=== PATIENT | female | born 1985 | race African-American/Black ===

== ENCOUNTER 2016-05-21 14:38 | Emergency (ER) | payer OTHER, MEDICAID ==
[~2016-05-21] VITALS: Ht 175.3 cm; Wt 108.0 kg
[~2016-05-21 14:38] MED LIST: CIPR500T4 PO; HYDR-3533 PO; PHEN1TAB49 PO; Z.0.BCPILL PO
[2016-05-21 14:39] VITALS: BP 138/82; PULSE 84; RESP 15; TEMP 97.8; O2SAT 95
[2016-05-21 16:30] VITALS: BP_SYST 130; BP_SYST 139; BP_DIAS 76; BP_DIAS 82; PULSE 71; RESP 15; O2SAT 98
[2016-05-21] MEDS ORDERED: SODIUM CHLORIDE 0.9% FLUSH 5 ML FLUSH IVF PRN (16:30)
[2016-05-21] MEDS ORDERED: methylPREDNISolone SOD SUCC 125 MG/2 ML VIAL IV PUSH ONE (16:30)
[2016-05-21] MEDS ORDERED: diphenhydrAMINE HCL 50 MG/ML VIAL IV PUSH ONE (16:30)
--- NOTE | 2016-05-21 16:30 | PD ---
HPI Chief Complaint: Chest Pain Time Seen by Provider: 16:20 Travel History International Travel<30 days: No Contact w/Intl Traveler<30days: No Traveled to known affect area: No History of Present Illness HPI 31-year-old female with history of borderline diabetes, presents to the ER today because she states that she started having chest discomfort this morning, itchiness all over her skin, lip swelling, dyspnea. She is able to swallow her own saliva, has not noticed an actual rash, denies any fevers or any other symptoms. She states that she has been eating more nuts in the last few weeks because her doctor has told her to try to eat healthier diet for her diabetes. 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 She denies any previous history of anaphylaxis. She denies any new medications. Modifying Factors: None Associated Signs & Symptoms: Chest discomfort, lip swelling, itchiness Risk Factors: Possible change in diet, eating nuts more PFSH Past Medical History Anemia: Yes Diminished Hearing: No Immunizations Current: Yes ?: Unknown LMP: 03/2016 : 5 Para: 3 Miscarriage: 1 : 1 Past Surgical History Section: Yes (x3) Tonsillectomy: Yes Social History Alcohol Use: Yes (WINE OCCASIONALLY) Tobacco Use: No Substance Use: No Allergies-Medications (Allergen,Severity, Reaction): Coded Allergies: Aspirin (Unverified Allergy, Severe, Swelling, 05/21/16) Ibuprofen (Unverified Allergy, Unknown, itchy, 05/21/16) patient states she is unsure if this is a true allergy or not Reported Meds & Prescriptions Reported Meds & Active Scripts Active Lortab 5 mg/325 mg (Hydrocodone/Acetaminophen 5 mg/325 mg) 1 Tab 1 Tab PO Q6H PRN Pyridium (Phenazopyridine HCl) 100 Mg Tab 100 Mg PO Q8H PRN Cipro (Ciprofloxacin HCl) 500 Mg Tab 500 Mg PO BID Reported Control Pills (Miscellaneous Medication) Tab 1 Tab PO DAILY Review of Systems Except as stated in HPI: all other systems reviewed are Neg Physical Exam Narrative GENERAL: Well-nourished, well-developed young -[place] female patient in no acute distress. SKIN: Warm and dry. I do not see obvious hives or rashes. HEAD: Normocephalic. EYES: No scleral icterus. No injection or drainage. ENT: Mucosa pink and moist. No erythema or exudates. No uvular edema. No uvular , palatal, or tonsillar deviation. Airway patent. Mild lower lip edema. NECK: Supple, trachea midline. CARDIOVASCULAR: Regular rate and rhythm without murmurs, gallops, or rubs. RESPIRATORY: Breath sounds equal bilaterally. No accessory muscle use. GASTROINTESTINAL: Abdomen soft, non-tender, nondistended. MUSCULOSKELETAL: No cyanosis, or edema. BACK: Nontender without obvious deformity. No CVA tenderness. Data Data Last Documented VS Vital Signs Date Time Temp Pulse Resp B/P Pulse Ox O2 Delivery O2 Flow Rate FiO2 05/21/16 16:30 71 15 130/76 98 139/82 05/21/16 16:27 Room Air 05/21/16 14:39 97.8 Orders Electrocardiogram (05/21/16 ) Basic Metabolic Panel (Bmp) (05/21/16 16:20) Ckmb (Isoenzyme) Profile (05/21/16 16:20) Complete Blood Count With Diff (05/21/16 16:20) Magnesium (Mg) (05/21/16 16:20) Prothrombin Time / Inr (Pt) (05/21/16 16:20) Act Partial Throm Time (Ptt) (05/21/16 16:20) Troponin I (05/21/16 16:20) Chest, Single Ap (05/21/16 16:20) Ecg Monitoring (05/21/16 16:20) Bilateral Bp Monitoring (05/21/16 16:20) Iv Access Insert/Monitor (05/21/16 16:20) Oximetry (05/21/16 16:20) Oxygen Administration (05/21/16 16:20) Sodium Chloride 0.9% Flush (Ns Flush) (05/21/16 16:30) Ed Urine Pregnancytest Poc (05/21/16 16:20) Methylprednisolone So Succ Inj (Solumedr (05/21/16 16:30) Diphenhydramine Inj (Benadryl Inj) (05/21/16 16:30) Labs Laboratory Tests Test 05/21/16 16:25 White Blood Count 10.7 TH/MM3 Red Blood Count 4.73 MIL/MM3 Hemoglobin 12.9 GM/DL Hematocrit 37.4 % Mean Corpuscular Volume 79.1 FL Mean Corpuscular Hemoglobin 27.3 PG Mean Corpuscular Hemoglobin 34.6 % Concent Red Cell Distribution Width 16.5 % Platelet Count 264 TH/MM3 Mean Platelet Volume 9.1 FL Neutrophils (%) (Auto) 63.0 % Lymphocytes (%) (Auto) 28.0 % Monocytes (%) (Auto) 6.0 % Eosinophils (%) (Auto) 2.9 % Basophils (%) (Auto) 0.1 % Neutrophils # (Auto) 6.8 TH/MM3 Lymphocytes # (Auto) 3.0 TH/MM3 Monocytes # (Auto) 0.6 TH/MM3 Eosinophils # (Auto) 0.3 TH/MM3 Basophils # (Auto) 0.0 TH/MM3 CBC Comment DIFF FINAL Differential Comment Prothrombin Time 11.0 SEC Prothromb Time International 1.0 RATIO Ratio Activated Partial 26.6 SEC Thromboplast Time Sodium Level 140 MEQ/L Potassium Level 3.5 MEQ/L Chloride Level 107 MEQ/L Carbon Dioxide Level 26.3 MEQ/L Anion Gap 7 MEQ/L Blood Urea Nitrogen 11 MG/DL Creatinine 0.86 MG/DL Estimat Glomerular Filtration 94 ML/MIN Rate Random Glucose 105 MG/DL Calcium Level 8.5 MG/DL Magnesium Level 2.3 MG/DL Total Creatine Kinase 99 U/L Troponin I LESS THAN 0.02 NG/ML [facility] Medical Decision Making Medical Screen Exam Complete: Yes Emergency Medical Condition: Yes Medical Record Reviewed: Yes Interpretation(s) EKG shows NSR, no ST elevation or depression, and no arrhythmias. No significant T-wave inversions. Laboratory Tests Test 05/21/16 16:25 Mean Corpuscular Volume 79.1 FL (80.0-100.0) Troponin I LESS THAN 0.02 NG/ML (0.02-0.05) Last 24 hours Impressions Chest X-Ray 05/21/16 1620 Signed Impressions: Service Date/Time: Saturday, May 21, 2016 16:42 - CONCLUSION: Normal examination for a patient of this age. Sandro Bassett MD Differential Diagnosis Chest discomfort, dyspnea, lip swelling, itchinessallergic reaction versus dysrhythmias versus anxiety attack versus ACS Narrative Course Chest x-ray did not show any signs of acute pulmonary processes. EKG shows no signs of acute dysrhythmias were acute ST elevations. Symptoms are more indicative of an allergic reaction then cardiac issue. Patient was given Solu- Medrol and Benadryl in the ER. On reevaluation at 5:30 PM, she reports feeling some decrease in her lip swelling and states that her itchiness is gone away. Vital signs are stable in the ER. I do not see obvious signs of throat swelling or other progression angioedema. Patient has never had history of angioedema. At this point, my plan would be to release her with further treatment for allergic reaction and have told her to avoid not for now until further evaluated by philosophy instructor. Return for any worsening in symptoms as needed. The plan has been discussed with the patient and she states understanding. Diagnosis Primary Impression: Allergic reaction Med/Other Pt SpecificInfo: Prescription(s) given Scripts Diphenhydramine (Benadryl Allergy)25 Mg Tab25 Mg PO Q6H PRN (ALLERGIES) #20 TAB Ref 0 Prov:Eliecer Love MD 05/21/16 Epinephrine Inj (Epipen 2-Delmer Inj)0.3 Mg/0.3 Ml Pfpen0.3 Mg IM ONCE PRN ( ALLERGIC REACTION) #1 PACK Ref 0 Prov:Eliecer Love MD 05/21/16 Prednisone 50 Mg Tab50 Mg PO DAILY #5 TAB Ref 0 Prov:Eliecer Love MD 05/21/16 Disposition: 01 DISCHARGE HOME Condition: Stable Eliecer Love MD May 21, 2016 16:30
[2016-05-21 17:07] LABS: AUTOMATED NEUTROPHIL # 6.8 TH/MM3 (1.8-7.7); BASOPHIL % 0.1 % (0.0-2.0); EOSINOPHIL # 0.3 TH/MM3 (0-0.4); EOSINOPHIL % 2.9 % (0.0-4.0); HEMATOCRIT 37.4 % (35.0-46.0); HEMO FLAGS DIFF FINAL; MEAN CELL VOLUME 79.1 FL (80.0-100.0); MEAN CORPUSCULAR HEMOGLOBIN 27.3 PG (27.0-34.0); MEAN CORPUSCULAR HGB CONC 34.6 % (32.0-36.0); PLATELET COUNT 264 TH/MM3 (150-450); RED BLOOD COUNT 4.73 MIL/MM3 (4.00-5.30); RED CELL DISTRIBUTION WIDTH 16.5 % (11.6-17.2); WHITE BLOOD COUNT 10.7 TH/MM3 (4.0-11.0)
--- NOTE | 2016-05-21 17:14 | RADRPT ---
EXAM DATE/TIME: 05/21/2016 16:42 [facility] COMPARISON: No previous studies available for comparison. INDICATIONS : Chest tightness. MEDICAL HISTORY : None. SURGICAL HISTORY : None. ENCOUNTER: Initial ACUITY: 1 day PAIN SCORE: 0/10 LOCATION: Bilateral chest FINDINGS: A single view of the chest demonstrates the lungs to be symmetrically aerated without evidence of mas s, infiltrate or effusion. The cardiomediastinal contours are unremarkable. Osseous structures are intact. CONCLUSION: Normal examination for a patient of this age. Sandro Bassett MD on May 21, 2016 at 17:12 Board Certified Radiologist. This report was verified electronically.
[2016-05-21 17:16] LABS: ANION GAP 7 MEQ/L (5-15); APTT (PATIENT) 26.6 SEC (24.3-30.1); BICARBONATE 26.3 MEQ/L (21.0-32.0); BLOOD UREA NITROGEN 11 MG/DL (7-18); CHLORIDE 107 MEQ/L (98-107); GLOMERULAR FILTRATION RATE 94 ML/MIN (>89); MAGNESIUM 2.3 MG/DL (1.5-2.5); POTASSIUM 3.5 MEQ/L (3.5-5.1); SODIUM (NA) 140 MEQ/L (136-145)
[2016-05-21 17:25] LABS: CREATINE KINASE 99 U/L (26-192)
[2016-05-21] MEDS ORDERED: BENA25TA3 PO (17:41)
[2016-05-21] MEDS ORDERED: PRED50 PO (17:41)
[2016-05-21] MEDS ORDERED: EPIP0.3I IM (17:41)
--- NOTE | 2016-05-21 21:16 | EKG ---
Date Performed: 05/21/2016 Time Performed: 15:08:38 PTAGE: 31 years EKG: Sinus rhythm WITH SINUS ARRHYTHMIA NORMAL ECG PREVIOUS TRACING : 05/07/2007 16.05 No significant change from previous tracing noted. DOCTOR: Adama Mauricio Interpretating Date/Time 05/21/2016 21:15:32
== END 2016-05-21 18:17 | disposition home or self-care (01) ==
LOC: NEPC 14:38
DX: T78.40XA Allergy, unspecified, initial encounter (principal); X58.XXXA Exposure to other specified factors, initial encounter
CPT/HCPCS: 71010; 80048; 82550; 83735; 84484; 84703; 85025; 85610; 85730; 93005; 96374; 96375; 99284; J1200; J2930